=== PATIENT | female | born 1970 | race Caucasian/White ===

== ENCOUNTER 2021-12-02 10:19 | Emergency (ER) | payer BC ==
[2021-12-02 09:41] VITALS: BP 127/74; PULSE 96
[2021-12-02] MEDS: Lidocaine 2% 5 ML SDV INJECT ONE (09:58)
[2021-12-02] MEDS: Bacitracin/Neomycin/Polymyxin B Oint 0.9 GM U/D Packet TOP ONE (10:14)
[2021-12-02] MEDS: Diphtheria,Pertussis(Acell),Tetanus Vaccine 0.5 ML Syringe IM ONE (10:23)
== END 2021-12-02 10:45 | disposition home or self-care (01) ==
LOC: CC.ED 10:19
DX: S51.811A Laceration without foreign body of right forearm, initial encounter (principal); Z79.899 Other long term (current) drug therapy; Z23 Encounter for immunization; W18.40XA Slipping, tripping and stumbling without falling, unspecified, initial encounter
CPT/HCPCS: 12001; 12002; 90471; 90715; 99282; 99282-25